=== PATIENT | male | born 1975 | race Caucasian/White ===

== ENCOUNTER → 2023-06-21 09:22 | Outpatient (BNVA) | payer BC, MEDICAID, SELFPAY | PROVIDERS: Visit Provider Specialist | DX: M79.641 Pain in right hand (principal); M79.642 Pain in left hand; M79.89 Other specified soft tissue disorders | CPT/HCPCS: 73110; 80053; 85651; 86140; 86160; 86162; 86200; 86235; 86255; 86376; 86431 ==

== ENCOUNTER 2024-02-08 13:13 | Outpatient (CLI) | payer OTHER, SELFPAY ==
--- NOTE | 2024-02-08 13:31 | XR_ITS ---
WS: [id number] LEFT SHOULDER: 3 VIEW(S) TECHNIQUE: Internal and external rotation with Y view. HISTORY: JOINT PAIN COMPARISON: None available. No fracture or dislocation or soft tissue abnormality. Mild narrowing of the AC joint. Small erosions involving the distal clavicle. Mild narrowing of the g lenohumeral joint. Mild hypertrophic bone formation involving the coracoid process. The visualized LE FT lung apex is clear. IMPRESSION: Mild degenerative osteoarthritic changes at the AC joint. Mild narrowing of the glenohumeral joint.
--- NOTE | 2024-02-08 13:31 | XR_ITS ---
WS: [id number] RIGHT HIP HISTORY: JOINT PAIN COMPARISON: None available. Right hip: No acute fracture or dislocation. Small bony protuberance at the junction of the femoral h ead and neck which is typically associated with acetabular impingement. Osteophytic extension of the superior acetabulum with small subchondral cystic changes. Mild narrowing of the hip joint. No fractu res. IMPRESSION: 1. No hip fracture. 2. Degenerative osteophyte with enlargement of subchondral changes involving the superior lateral ac etabulum. 3. Bony protuberance junction of the femoral head and neck which may be associated with acetabular i mpingement.
--- NOTE | 2024-02-08 13:31 | XR_ITS ---
WS: [id number] LEFT HAND: 2 VIEW(S) TECHNIQUE: PA and lateral. HISTORY: JOINT PAIN COMPARISON: 06/21/2023 Interphalangeal joint spaces are mildly narrowed. There is mild narrowing with radiocarpal joint spac e. No erosions at the ulnar styloid or involving the metacarpal heads. Mild narrowing of the carpal r ows. No soft tissue nodular subluxation. IMPRESSION: 1. Mild osteoarthritis involving the interphalangeal joints. 2. Mild narrowing of the radiocarpal joint. 3. No erosions at the metacarpal heads or ulnar styloid.
== END 2024-02-08 13:14 | disposition home or self-care (01) ==
PROVIDERS: Visit Provider Dermatology
DX: Z02.71 Encounter for disability determination (principal); M19.012 Primary osteoarthritis, left shoulder; M25.751 Osteophyte, right hip; R93.6 Abnormal findings on diagnostic imaging of limbs
CPT/HCPCS: 73030; 73120; 73502